=== PATIENT | male | born 1995 | race Caucasian/White ===

== ENCOUNTER 2020-10-02 20:11 | Emergency (ER) | payer OTHER ==
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
[2020-10-02] MEDS ORDERED: Sodium Chloride 0.9% 1,000 ML IV SCH (20:45)
== END 2020-10-02 21:53 | disposition home or self-care (01) ==
LOC: JP.ED 20:11
DX: L55.0 Sunburn of first degree (principal); R11.2 Nausea with vomiting, unspecified
CPT/HCPCS: 36415; 80053; 85025; 99283; J7030